=== PATIENT | female | born 1980 | race Caucasian/White ===

== ENCOUNTER → 2018-01-16 | Outpatient (CLI) | payer OTHER | LOC: M.ULTRA 09:00 | DX: E01.0 Iodine-deficiency related diffuse (endemic) goiter (principal) ==

== ENCOUNTER → 2018-12-04 | Outpatient (CLI) | payer OTHER | LOC: M.RAD 13:37 → M.ULTRA 15:00 | DX: N60.01 Solitary cyst of right breast (principal); N64.4 Mastodynia ==

== ENCOUNTER → 2018-12-11 | Outpatient (CLI) | payer OTHER ==
--- NOTE | 2018-12-12 15:06 | PATH ---
[address] [address] PATHOLOGY RPT PROCEDURE Name: ELLA STEVENN Room: [facility]#: [id number] Admission: 12/11/18 Date of : 80 Discharge: Report #: [id number] Path Case #: [id number] Note [facility] Accession Number: [id number] TESTS RESULT FLAG UNITS REF RANGE LAB Clinician Provided Cytology Information No. of containers..01 Other (Miscellaneous) Source: 01 RT BRST ASP @800 DIAGNOSIS: 02 RT BREAST CYST ASPIRATION @900 SA, 800, 1CM NEGATIVE FOR MALIGNANT CELLS. CHARACTERISTIC OF APOCRINE CYST. Signed out by: Donavan Juarez MD, Pathologist NPI- [id number] Performed by: Joseline Orellana, Stone Grader ([facility]) Gross description: 01 3ML, TYLER, CLEAR /LCS FLAG LEGEND: L-Low Normal,H-High Normal,LL-Alert Low,HH-Alert High <-Panic Low,>-Panic High,A-Abnormal,AA-Critical Abnormal Performed at: [address] [place] [address] Jos Cruz MD, [address] [place] [address] [facility], [place] [address] Donavan Juarez MD, Specimen Comment: A courtesy copy of this report has been sent to Specimen Comment: [phone], , . Specimen Comment: Report sent to DR WIGGINS,DR HERNANDEZ / DR GAMBOA Performed at: [address], [place], [place] [id number] MD Jos Cruz MD Phone: [phone]
--- NOTE | 2018-12-13 15:06 | PATH ---
[address] [address] PATHOLOGY RPT PROCEDURE Name: ELLA STEVEN Room: [facility]#: [id number] Admission: 12/11/18 Date of : 80 Discharge: Report #: [id number] Path Case #: [id number] Note [facility] Accession Number: [id number] TESTS RESULT FLAG UNITS REF RANGE LAB Clinician Provided Cytology Information No. of containers..01 Other (Miscellaneous) Source: 01 RT BRST ASP @ 900 DIAGNOSIS: 02 RT BREAST CYST ASPIRATION @ 900, SA, 800,1CM NEGATIVE FOR MALIGNANT CELLS. CHARACTERISTIC OF APOCRINE CYST. Signed out by: Donavan Juarez MD, Pathologist NPI- [id number] Performed by: Joseline Orellana, Co Founder And Cto ([facility]) Gross description: 01 3ML, TYLER, CLEAR /LCS FLAG LEGEND: L-Low Normal,H-High Normal,LL-Alert Low,HH-Alert High <-Panic Low,>-Panic High,A-Abnormal,AA-Critical Abnormal Performed at: [address] [place] [address] Jos Cruz MD, [address] [place] [address] [facility], [place] [address] Donavan Juraez MD, Specimen Comment: A courtesy copy of this report has been sent to Specimen Comment: [phone], . Specimen Comment: Report sent to DR HERNANDEZ / DR WIGGINS Specimen Comment: A duplicate report has been generated due to demographic updates. Performed at: [address], [place], [place] [id number] MD Jos Cruz MD Phone: [phone]
== END | disposition home or self-care (01) ==
LOC: M.ULTRA 08:30
DX: N60.01 Solitary cyst of right breast (principal); N64.4 Mastodynia